=== PATIENT | female | born 1965 ===

== ENCOUNTER 2016-12-19 10:43 | Emergency (ER) | payer MEDICAID, MEDICARE, OTHER ==
[2016-12-19 10:50] VITALS: BP 135/82; PULSE 83; RESP 16; TEMP 98; O2SAT 99; BMI 27.3
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
== END 2016-12-19 12:45 | disposition home or self-care (01) ==
LOC: H.ER 10:43
DX: S06.0X0A Concussion without loss of consciousness, initial encounter (principal); Y04.0XXA Assault by unarmed brawl or fight, initial encounter; Y92.89 Other specified places as the place of occurrence of the external cause; E03.9 Hypothyroidism, unspecified; E78.00 Pure hypercholesterolemia, unspecified; I10 Essential (primary) hypertension